=== PATIENT | male | born 1950 | race Two or more races ===

== ENCOUNTER → 2023-01-18 | Outpatient (CLI) | payer OTHER ==
[2023-01-18 09:21] LABS: Basophils # (auto) 0.1 10 ^3/uL (0-0.2); Basophils % (auto) 1.3 % (0.0-2.0); Eosinophils # (auto) 0.4 10 ^3/uL (0-0.8); Eosinophils % (auto) 7.1 % (0.0-7.0); Lymphocytes # (auto) 2.1 10 ^3/uL (0.4-5.4); Lymphocytes % (auto) 34.6 % (10.0-50.0); Mean Corpuscular Hemoglobin 28.8 pg (28.0-32.0); Mean Corpuscular Hgb Conc. 32.6 g/dL (32.0-36.0); Mean Corpuscular Volume 88.4 fL (80.0-100.0); Monocytes # (auto) 0.4 10 ^3/uL (0-1.3); Monocytes % (auto) 6.6 % (0.0-12.0); Neutrophils # (auto) 3.1 10 ^3/uL (1.6-8.6); Neutrophils % (auto) 50.4 % (37.0-80.0); Nucleated Red Blood Cells % 0.1 %; Red Blood Cells 5.21 10^6/uL (4.5-5.90); Red Cell Distribution Width 14.2 % (11.8-14.3); White Blood Cell 6.1 10^3/uL (4.4-10.8)
[2023-01-18 10:20] LABS: Albumin 3.8 g/dL (3.4-5.0); Calcium 9.5 mg/dL (8.5-10.1); Potassium 4.7 mmol/L (3.5-5.1)
[2023-01-18 10:25] LABS: BUN/Creatinine Ratio 19.4 (10.0-20.0); Bilirubin, Total 0.6 mg/dL (0.2-1.0); Total Protein 7.6 g/dL (6.4-8.2); Uric Acid 6.3 mg/dL (3.5-7.2)
== END | disposition home or self-care (01) ==
LOC: LAB 08:56
PROVIDERS: ATTEND Family Medicine
DX: Z12.5 Encounter for screening for malignant neoplasm of prostate (principal); E11.65 Type 2 diabetes mellitus with hyperglycemia; E78.5 Hyperlipidemia, unspecified; M05.79 Rheumatoid arthritis with rheumatoid factor of multiple sites without organ or systems involvement; I73.9 Peripheral vascular disease, unspecified; E11.51 Type 2 diabetes mellitus with diabetic peripheral angiopathy without gangrene; D69.2 Other nonthrombocytopenic purpura
CPT/HCPCS: 36415; 80053; 80061; 82043; 83036; 84153; 84443; 84550; 85025

== ENCOUNTER → 2023-06-08 | Outpatient (CLI) | payer OTHER ==
[2023-06-08 08:52] LABS: Alanine Aminotransferase 10 U/L (7-40); Albumin 4.5 g/dL (3.2-4.8); Alkaline Phosphatase 91 U/L (46-116); Anion Gap 10 (5-15); Aspartate Aminotransferase 13 U/L (13-40); BUN/Creatinine Ratio 12.7 (10.0-20.0); Bilirubin, Total 0.8 mg/dL (0.2-1.0); Blood Urea Nitrogen 13 mg/dL (9-23); Calcium 10.1 mg/dL (8.5-10.1); Carbon Dioxide 24 mmol/L (20-30); Chloride 106 mmol/L (98-107); Cholesterol 165 mg/dL (< 200); Glucose 108 mg/dL (74-106); HDL Cholesterol 34 mg/dL (40-59); LDL Cholesterol 113 mg/dL (< 100); Potassium 4.2 mmol/L (3.5-5.1); Sodium 140 mmol/L (136-145); Total Protein 7.1 g/dL (5.7-8.2); Triglycerides 138 mg/dL (< 150)
[2023-06-08 08:53] LABS: Creatinine, Urine 194.23 mg/dL (30.0-125.0)
== END | disposition home or self-care (01) ==
LOC: LAB 07:35
PROVIDERS: ATTEND Family Medicine
DX: I12.9 Hypertensive chronic kidney disease with stage 1 through stage 4 chronic kidney disease, or unspecified chronic kidney disease (principal); E11.22 Type 2 diabetes mellitus with diabetic chronic kidney disease; N18.9 Chronic kidney disease, unspecified; E11.65 Type 2 diabetes mellitus with hyperglycemia; E78.2 Mixed hyperlipidemia
CPT/HCPCS: 36415; 80053; 80061; 82043; 82570; 83036

== ENCOUNTER 2023-10-20 18:13 | Emergency (ER) | payer OTHER ==
[~2023-10-20] VITALS: Ht 180.3 cm; Wt 64.9 kg
[2023-10-20 20:21] LABS: Basophils # (auto) 0.1 10 ^3/uL (0-0.2); Basophils % (auto) 0.5 % (0.0-2.0); Eosinophils # (auto) 0.2 10 ^3/uL (0-0.8); Eosinophils % (auto) 1.3 % (0.0-7.0); Hematocrit 35.2 % (41.0-53.0); Hemoglobin 11.3 g/dL (13.5-17.5); Lymphocytes # (auto) 2.8 10 ^3/uL (0.4-5.4); Lymphocytes % (auto) 22.9 % (10.0-50.0); Mean Corpuscular Hemoglobin 27.7 pg (28.0-32.0); Mean Corpuscular Hgb Conc. 32.2 g/dL (32.0-36.0); Mean Corpuscular Volume 86.1 fL (80.0-100.0); Monocytes # (auto) 0.8 10 ^3/uL (0-1.3); Monocytes % (auto) 6.4 % (0.0-12.0); Neutrophils # (auto) 8.5 10 ^3/uL (1.6-8.6); Neutrophils % (auto) 68.9 % (37.0-80.0); Nucleated Red Blood Cells % 0.1 %; Red Blood Cells 4.09 10^6/uL (4.5-5.90); Red Cell Distribution Width 14.7 % (11.8-14.3); White Blood Cell 12.3 10^3/uL (4.4-10.8)
[2023-10-20 20:43] LABS: Albumin 4.4 g/dL (3.2-4.8); Alkaline Phosphatase 81 U/L (46-116); Anion Gap 8 (5-15); Aspartate Aminotransferase 10 U/L (13-40); BUN/Creatinine Ratio 51.7 (10.0-20.0); Bilirubin, Total 0.4 mg/dL (0.2-1.0); Blood Urea Nitrogen 46 mg/dL (9-23); Calcium 10.9 mg/dL (8.7-10.4); Carbon Dioxide 25 mmol/L (20-30); Chloride 103 mmol/L (98-107); Glucose 128 mg/dL (74-106); Potassium 4.4 mmol/L (3.5-5.1); Sodium 136 mmol/L (136-145); Total Protein 6.8 g/dL (5.7-8.2)
[2023-10-20 20:45] LABS: Alanine Aminotransferase < 9 U/L (7-40)
[2023-10-20] MEDS: IOHEXOL 300 MG/ML 100ML BOTTLE IJ ONE (22:20)
[2023-10-21 03:30] VITALS: BP 104/64; PULSE 81; RESP 16; TEMP 98.4; O2SAT 96
== END 2023-10-21 06:56 | disposition short-term general hospital (02) ==
LOC: ER 18:13
DX: C10.9 Malignant neoplasm of oropharynx, unspecified (principal); C79.9 Secondary malignant neoplasm of unspecified site; R59.1 Generalized enlarged lymph nodes; G30.9 Alzheimer's disease, unspecified; F02.80 Dementia in other diseases classified elsewhere, unspecified severity, without behavioral disturbance, psychotic disturbance, mood disturbance, and anxiety; Z79.899 Other long term (current) drug therapy
CPT/HCPCS: 36415; 70491; 80053; 82962; 85025; 99285; Q9967

== ENCOUNTER 2024-05-06 12:55 | Emergency (ER) | payer OTHER, MEDICAID ==
[~2024-05-06] VITALS: Ht 182.9 cm; Wt 48.0 kg
--- NOTE | 2024-05-06 13:24 | ED.PDOC ---
Eye-HPI HPI Comments HPI: 74-year-old male accompanied by his at bedside. Patient is on hospice. is speaking on behalf of the patient's since he has a tracheostomy tube. Patient presented to the ED because history colostomy tube was dislodged about approximately an hour prior to arrival. Patient denies any respiratory distress able to maintain his airway. Patient has a tracheostomy tube in presents because of large neck tumor. He is on comfort measures only. He is not on any chemotherapy or radiation. Denies any bleeding. Patient follows up with [facility]. does not want to admit him to the hospital or any further treatment for him accept fixing the as tracheostomy tube in go home. Vitals: Temp: 97.7 F Heart rate: 104 RR: 16 BP: 96/66 02 sat: 98% on room air PMH:throat cancer(stage 4), Alzheimer disease, anxiety, DM PSH: denies social history: denies tobacco use, denies ETOH use, denies drug use medications: tramadol, metformin, morphine allergies: NKDA HPI: Poor Historian. Past Medcial History: Past Surgical History: REVIEW OF SYSTEMS: CONSTITUTIONAL: Denies acute: fever, diaphoresis, chills, generalized weakness. HEAD: Denies acute: headache, photophobia Eyes: Denies acute: Double vision, vision loss, eye pain, eye discharge. EARS: Denies acute: tinnitus, hearing loss, ear discharge, ear pain, THROAT: Denies acute: sore throat, swelling, difficulty swallowing , pain with swallowing, change in voice. NECK: Denies acute: neck pain, neck swelling, stiff neck. HEART: Denies acute : chest pain, palpitations, LUNGS: Denies acute: SOB, wheezing, cough, hemoptysis ABDOMEN: Denies acute: abdominal pain, Nausea, Vomiting, diarrhea, melena , hematemesis, hematochezia SKIN: Denies acute: rash, redness, lesions, itchiness. EXTREMITIES: Denies acute: calf pain, numbness, tingling, weakness, denies pain in extremity. Denies acute: Low back pain. Neuro: Denies acute: focal neurological deficit, motor or sensory focal neurological deficit, tremors, seizure like activity, confusion, dizziness, change in mental status, loss of bowel or bladder function, cauda equina like symptoms. : Denies acute: dysuria, hematuria, flank pain, increase in urinary frequency. PSYCH: Denies acute: hallucination, suicidal ideation, homicidal ideation. PHYSICAL EXAM: General: no acute distress, awake and alert. Head: normocephalic, atraumatic. Neck: supple, trachea is midline, no swelling. Noted that the colostomy tube is dislodged. The ostomy is still patent. We will apply some suctioning to clean the site and replace the tracheostomy tube b y RT. Throat: Normal phonation. Eyes:, no erythema, no purulent discharge, no proptosis, no icterus. Heart: regular rate, regular rhythm, no significant murmur appreciated. Lungs: no apparent respiratory distress, No wheezing, no rhonchi, no crackles. No stridors Clear to auscultation bilaterally. Abdomen: non tender to palpation, non distended, soft, no guarding, no rebound, + bowel sounds. Neuro: Awake, Alert, oriented to name, self, situation, follows commands GCS=15. Skin: no petechia, no purpura, no cyanosis, non-pale, not jaundice. Lower extremities: --no - Pitting edema no deformity, no focal swelling, no calf TTP. Makes eye contact. moves all four extremities. Face: no apparent facial droop. No CVA tenderness to percussion bilaterally. Ambulating in the ED independently. Chief Complaint: Tube Replacement Time Seen by MD: 13:19 Primary Care Provider: CAMERON Hoff Notes: Allergies Allergies: Coded Allergies: NO KNOWN ALLERGIES (Unverified , 10/20/23) Information Source: Patient, Spouse Mode of Arrival: Ambulatory Brought in by: spouse Past Medical History PAST MEDICAL HISTORY: Alzheimer, Anxiety, Cancer, DM Family History Family History: Reviewed,noncontributory to illness Social History Smoker: Non-Smoker Alcohol: Denies ETOH Use Drugs: Denies Drug Use Lives In: Home Was a procedure done? Was a procedure done?: No Other Procedure Procedure Tracheostomy care by suctioning and replacing tracheostomy tube and applying the neck collar for the tube. This was done by RT EENT DIFF Eye: N/A Sore Throat: Other (Airway compromise, airway obstruction, bleeding, infection,) X-Ray, Labs, Meds, VS Vital Signs Date Time Temp Pulse Resp B/P (MAP) Pulse Ox O2 Delivery O2 Flow Rate FiO2 05/06/24 15:03 Room Air* 0 21 05/06/24 15:01 98 17 98/85 (89) 98 05/06/24 13:06 97.7 104 16 99/66 (77) 98 Time of 1ST Reevaluation: 17:09 Reevaluation 1ST: Improved Patient Education/Counseling: Diagnosis, Treatment Family Education/Counseling: Diagnosis, Treatment Comments Patient presented with the above HPI.-trachea dislodgment-----workup was initiated. patient was found with the above mentioned diagnosis. Patient ED course and VS have been stabilized. Patient has been reassessed in the ED and remained in a stable condition. Pertinent incidental findings were discussed with the patient and/or family. Patient/family voices understanding and is agreeable with plan. Patient has been observed in the ED adequate length of time to insure improvement/stability. patient was admitted to the medicine team for further evaluation and treatment of their presentation. Respiratory therapy came and evaluated the patient at bedside. Tracheal suctioning was performed in the tracheostomy tube was replaced and secured. Patient tolerated the procedure well. All the reports of any imaging studies that were ordered by myself were reviewed by myself. Departure 1 Departure Time of Disposition: 13:35 Impression: Primary Impression: Tracheostomy care Additional Impressions: Tracheostomy complication Encounter for tracheostomy tube change Disposition: HOME / SELF CARE / HOMELESS Condition: Stable Additional Instructions: Additional discharge instructions: You MUST follow-up with your primary care/family doctor in 1 to 2 days. If you are unable to see your primary care/family doctor, please return to our emergency room for re-assessment and re-evaluation in 1 to 2 days. Return to the emergency room here in our facility or to the nearest ER [facility] if your symptoms change or worsen. CONSULTATIONS: you MUST Follow-up for consultation as soon as possible with: ENT and pulmonology in 1-2 days. Please call for appointment. You MUST call the consultants office yourself to make an appointment. You may need to arrange that through your insurance and/or your primary/family doctor. If you are unable to see the actuarial consultant in 1 to 2 days, you must return to our emergency room (or any other ER of your choice) for re-assessment and re-eval uation. Adequate fluid hydration. Discharged With: Self, Spouse Critical Care Note Critical Care Time?: No I personally scribed for MARINA OSPINA DO ([email or web address]) on 05/06/24 at 13:23. Electronically submitted by Marsha Jones ([email or web address]). MARINA OSPINA DO May 06, 2024 13:23
[2024-05-06 15:01] VITALS: BP 98/85; PULSE 98; RESP 17; O2SAT 98
== END 2024-05-06 14:40 | disposition home or self-care (01) ==
LOC: ER 12:57
DX: J95.00 Unspecified tracheostomy complication (principal); E11.9 Type 2 diabetes mellitus without complications; F02.80 Dementia in other diseases classified elsewhere, unspecified severity, without behavioral disturbance, psychotic disturbance, mood disturbance, and anxiety; F41.9 Anxiety disorder, unspecified; G30.9 Alzheimer's disease, unspecified